=== PATIENT | male | born 1955 | race Two or more races ===

== ENCOUNTER 2019-07-25 11:06 | Emergency (ER) | payer BC ==
[~2019-07-25] VITALS: Ht 165.1 cm; Wt 86.2 kg
[2019-07-25] MEDS ORDERED: IV NORMAL SALINE 1000ML BAG 1,000 ML IV SCH (11:23)
--- NOTE | 2019-07-25 11:35 | PHYS DOC ---
Past Medical History Past Medical History: CAD, Hypertension Past Surgical History: Coronary Bypass Surgery Smoking: Cigarettes Adult General Chief Complaint Chief Complaint: COUGH HPI HPI Patient is a 64-year-old male who presents to the emergency department for evaluation. He states the past 2 days he has had a cough, productive of small a pancho of white sputum, with some increasing shortness of breath. Denies any pain, other than a little bit of a headache related to the cough. He denies any orthopnea but admits to some shortness of breath. He has not had any significant pedal edema. He does have a history of coronary artery disease, having undergone a bypass surgery in the past. He is a smoker. There are no alleviating or exacerbating factors to his symptoms except that exertion seems to worsen his shortness of breath. On arrival he is noted to be hypertensive and tachycardic. Review of Systems Review of Systems Constitutional: Denies fever or chills [] Eyes: Denies change in visual acuity, redness, or eye pain [] HENT: Denies nasal congestion or sore throat [] Respiratory: No additional information not addressed in HPI [] Cardiovascular: The patient denies any chest pain, palpitations, or orthopnea [] GI: Denies abdominal pain, nausea, vomiting, bloody stools or diarrhea [] : Denies dysuria or hematuria [] Musculoskeletal: Denies back pain or joint pain [] Integument: Denies rash or skin lesions [] Neurologic: Denies headache, focal weakness or sensory changes [] Endocrine: Denies polyuria or polydipsia [] All other systems were reviewed and found to be within normal limits, except as documented in this note. Current Medications Current Medications Current Medications Medications (Trade) Dose Ordered Sig/Taylor Start Time Stop Time Status Last Admin Dose Admin Albuterol/ Ipratropium (Duoneb) 3 ml 1X ONCE 07/25/19 12:00 07/25/19 12:01 DC 07/25/19 11:39 3 ML Clonidine HCl (Catapres) 0.1 mg 1X ONCE 07/25/19 12:15 07/25/19 12:16 DC 07/25/19 12:23 0.1 MG Methylprednisolone Sodium Succinate (SOLU-Medrol 125MG VIAL) 125 mg 1X ONCE 07/25/19 12:00 07/25/19 12:01 DC 07/25/19 11:50 125 MG Sodium Chloride 1,000 ml @ 100 mls/hr Q10H 07/25/19 11:23 07/25/19 21:22 07/25/19 11:50 100 MLS/HR Allergies Allergies Allergies Coded Allergies Type Severity Reaction Last Updated Verified No Known Drug Allergies 07/25/19 No Physical Exam Physical Exam PHYSICAL EXAM: CONSTITUTIONAL: Well developed, well nourished HEAD: normocephalic, atraumatic EENT: PERRL, EOMI. Conjunctivae normal color, sclerae non-icteric; moist mucous membranes. NECK: Supple, non-tender; no meningismus. LUNGS: There are scattered coarse wheezes and expiratory rhonchi in all lung tesfaye, without any rales. There is mildly increased work of breathing.. HEART: Regular tachycardia, no murmur CHEST: No deformity; non-tender ABDOMEN: The abdomen is soft, and non-tender, no masses or bruits. EXTREM: Normal ROM; no deformity, no calf tenderness. Normal pulses palpable in all extremities. There is trace bilateral pedal edema. SKIN: No rash; no diaphoresis NEURO: Alert; normal speech and cognition; CN's grossly intact; strength grossly intact without focal deficit. BACK: No CVA TTP. Current Patient Data Vital Signs Vital Signs Date Time Temp Pulse Resp B/P (MAP) Pulse Ox O2 Delivery O2 Flow Rate FiO2 07/25/19 12:26 96 20 164/93 (116) 97 Room Air 07/25/19 11:10 98.5 98.5 Lab Values Laboratory Tests Test 07/25/19 11:37 07/25/19 12:29 White Blood Count 4.7 x10^3/uL (4.0-11.0) Red Blood Count 4.80 x10^6/uL (4.30-5.70) Hemoglobin 15.2 g/dL (13.0-17.5) Hematocrit 44.2 % (39.0-53.0) Mean Corpuscular Volume 92 fL (79-100) Mean Corpuscular Hemoglobin 32 pg (25-35) Mean Corpuscular Hemoglobin Concent 35 g/dL (31-37) Red Cell Distribution Width 14.8 % (11.5-14.5) H Platelet Count 173 x10^3/uL (140-400) Neutrophils (%) (Auto) 59 % (31-73) Lymphocytes (%) (Auto) 23 % (24-48) L Monocytes (%) (Auto) 14 % (0-9) H Eosinophils (%) (Auto) 4 % (0-3) H Basophils (%) (Auto) 1 % (0-3) Neutrophils # (Auto) 2.7 x10^3/uL (1.8-7.7) Lymphocytes # (Auto) 1.1 x10^3/uL (1.0-4.8) Monocytes # (Auto) 0.7 x10^3/uL (0.0-1.1) Eosinophils # (Auto) 0.2 x10^3/uL (0.0-0.7) Basophils # (Auto) 0.0 x10^3/uL (0.0-0.2) Sodium Level 140 mmol/L (136-145) Potassium Level 3.8 mmol/L (3.5-5.1) Chloride Level 105 mmol/L (98-107) Carbon Dioxide Level 27 mmol/L (21-32) Anion Gap 8 (6-14) Blood Urea Nitrogen 16 mg/dL (8-26) Creatinine 1.1 mg/dL (0.7-1.3) Estimated GFR (Cockcroft-Gault) 67.4 BUN/Creatinine Ratio 15 (6-20) Glucose Level 120 mg/dL (70-99) H Lactic Acid Level 1.0 mmol/L (0.4-2.0) Calcium Level 8.9 mg/dL (8.5-10.1) Total Bilirubin 0.3 mg/dL (0.2-1.0) Aspartate Amino Transferase (AST) 19 U/L (15-37) Alanine Aminotransferase (ALT) 22 U/L (16-63) Alkaline Phosphatase 57 U/L (46-116) Troponin I Quantitative < 0.017 ng/mL (0.000-0.055) SQ-Rge-U-Type Natriuretic Peptide 901 pg/mL (0-124) H Total Protein 7.3 g/dL (6.4-8.2) Albumin 3.6 g/dL (3.4-5.0) Albumin/Globulin Ratio 1.0 (1.0-1.7) Influenza Type A Antigen Negative (NEGATIVE) Influenza Type B Antigen Negative (NEGATIVE) Laboratory Tests 07/25/19 11:37 Laboratory Tests 07/25/19 11:37 EKG EKG []Normal sinus rhythm at a rate of 101 beats for minute, normal axis, normal intervals, left ventricular hypertrophy with repolarization abnormality without acute ischemic ST/T changes, nonspecific changes are present. Radiology/Procedures Radiology/Procedures PROCEDURE: CHEST PA & LATERAL CHEST PA LATERAL History: Shortness of breath Comparison: None. Findings: 2 views of the chest are submitted. There has been median sternotomy. There is atrial appendage clip. Pericardial cardiac silhouette is enlarged. There is no pneumothorax or dependent pleural fluid. There is some fullness of the right hilar region/mild right perihilar opacity. Impression: 1. There is fullness of the right hilar region/perihilar opacity which may be component of infiltrate although short-term follow-up after treatment advised. There are no previous exams to evaluate for change.[] Course & Med Decision Making Course & Med Decision Making Pertinent Labs and Imaging studies reviewed. (See chart for details) [] 1:45 PM: The patient's condition remained stable. He is feeling significantly better at this time after breathing treatments and his breath sounds have significantly improved. I discussed test results in detail, the need for close follow-up, and return precautions. Patient's blood pressure remains elevated will although it has improved after treatment, to the 180s systolic. He states his blood pressure is normally well-controlled and I discussed importance of close outpatient follow-up and further close monitoring of his blood pressure. He reports compliance with his blood pressure medications. Dragon Disclaimer Dragon Disclaimer This electronic medical record was generated, in whole or in part, using a voice recognition dictation system. Departure Departure Impression: Primary Impression: Wheezing Additional Impressions: Pneumonia Hypertension Disposition: 01 HOME, SELF-CARE Condition: STABLE Referrals: UNKNOWN PCP NAME (PCP) BALDEMAR SETH MD Patient Instructions: Pneumonia, Adult Additional Instructions: There was an abnormality seen on your chest x-ray today, which will require further outpatient evaluation and repeat x-ray after treatment with antibiotics. Please contact pulmonary physician as instructed to arrange follow-up in the next 1-2 weeks. Please call tomorrow to schedule an appointment. Scripts Albuterol Sulfate (PROAIR HFA INHALER) 8.5 Gm Hfa.aer.ad 1 PUFF INH PRN Q6HRS PRN for SHORTNESS OF BREATH, #1 INHALER 0 Refills Prov: GONZÁLEZ MACARIO MD 07/25/19 Prednisone (PREDNISONE) 20 Mg Tablet 40 MG PO DAILY for 5 Days, #10 TAB Prov: GONZÁLEZ MACARIO MD 07/25/19 Azithromycin (AZITHROMYCIN TABLET) 250 Mg Tablet 1 PKG PO UD, #6 TAB Prov: GONZÁLEZ MACARIO MD 07/25/19 Problem Qualifiers GONZÁLEZ MACARIO MD Jul 25, 2019 11:35
[2019-07-25 11:57] LABS: BASO % 1 % (0-3); EOS # 0.2 x10^3/uL (0.0-0.7); EOS % 4 % (0-3); HEMATOCRIT 44.2 % (39.0-53.0); HEMOGLOBIN 15.2 g/dL (13.0-17.5); LYMPH # 1.1 x10^3/uL (1.0-4.8); LYMPH % 23 % (24-48); MEAN CORPUSCULAR HEMOGLOBIN 32 pg (25-35); MEAN CORPUSCULAR HGB CONC 35 g/dL (31-37); MEAN CORPUSCULAR VOLUME 92 fL (79-100); MONO # 0.7 x10^3/uL (0.0-1.1); MONO % 14 % (0-9); NEUT # 2.7 x10^3/uL (1.8-7.7); NEUT % 59 % (31-73); PLATELET COUNT 173 x10^3/uL (140-400); RED CELL DISTRIBUTION WIDTH 14.8 % (11.5-14.5); WHITE BLOOD COUNT 4.7 x10^3/uL (4.0-11.0)
[2019-07-25] MEDS ORDERED: methylPREDNISolone SOD SUCC PF 125 MG/2 ML VIAL. IV ONE (12:00)
[2019-07-25] MEDS ORDERED: IPRATRPIUM/ALBUTEROL 0.5/2.5MG 3 ML NEBU. NEB ONE (12:00)
[2019-07-25 12:01] LABS: CALCIUM 8.9 mg/dL (8.5-10.1); CREATININE 1.1 mg/dL (0.7-1.3); GFR 67.4; POTASSIUM 3.8 mmol/L (3.5-5.1)
[2019-07-25 12:07] LABS: ALBUMIN 3.6 g/dL (3.4-5.0); TOTAL BILIRUBIN 0.3 mg/dL (0.2-1.0); TOTAL PROTEIN 7.3 g/dL (6.4-8.2)
--- NOTE | 2019-07-25 12:07 | RAD ---
CHEST PA LATERAL History: Shortness of breath Comparison: None. Findings: 2 views of the chest are submitted. There has been median sternotomy. There is atrial appendage clip. Pericardial cardiac silhouette is enlarged. There is no pneumothorax or dependent pleural fluid. There is some fullness of the right hilar region/mild right perihilar opacity. Impression: 1. There is fullness of the right hilar region/perihilar opacity which may be component of infiltrate although short-term follow-up after treatment advised. There are no previous exams to evaluate for change. Electronically signed by: Jeff Driver MD (07/25/2019 12:04 PM) [id number]
[2019-07-25] MEDS ORDERED: cloNIDine HCL 0.1 MG TABLET PO ONE (12:15)
[2019-07-25 13:10] VITALS: BP 188/86
[2019-07-25 13:17] LABS: INFLUENZA A PATIENT NEGATIVE (NEGATIVE); INFLUENZA B PATIENT NEGATIVE (NEGATIVE)
[2019-07-25] MEDS ORDERED: PRED20TA PO (13:48)
[2019-07-25] MEDS ORDERED: AZIT250T6 PO (13:48)
[2019-07-25] MEDS ORDERED: ALBU2.5V8 INH (13:48)
--- NOTE | 2019-07-25 14:16 | EKG ---
[facility] [address] [place] [id number] Test Date: 2019-07-25 Test Time: 11:28:21 Pat Name: BERE VINES Department: Room: Gender: M Equity Manager: [place] : [id number] Requested By: GONZÁLEZ MACARIO Order Number: [id number] Reading MD: Jitendra Gibson MD Measurements Intervals [place] Rate: 100 P: 64 [place]: 154 QRS: 16 QRSD: 90 T: 119 QT: 360 QTc: 467 Interpretive Statements SINUS TACHYCARDIA LVH NON-SPECIFIC ST/T CHANGES Electronically Signed On 07-25-2019 15:13:55 [employer] by Jitendra Gibson MD
== END 2019-07-25 14:21 | disposition home or self-care (01) ==
LOC: ER 11:06
DX: J18.9 Pneumonia, unspecified organism (principal); I10 Essential (primary) hypertension; I25.810 Atherosclerosis of coronary artery bypass graft(s) without angina pectoris; F17.210 Nicotine dependence, cigarettes, uncomplicated
CPT/HCPCS: 36415; 71046; 80053; 83605; 83880; 84484; 85025; 87040; 87804; 93005; 94640; 96374; 99285; J2930; J7030; J7620

== ENCOUNTER 2021-06-24 10:24 | Emergency (ER) | payer BC ==
[~2021-06-24] VITALS: Ht 165.1 cm; Wt 90.0 kg
[~2021-06-24 10:24] MED LIST: ALBU2.5V8 INH; ASPI-886 PO; ATOR20TA58 PO; AZIT250T6 PO; CARV6.2511 PO; FURO-68 PO; LISI10TA16 PO; PRED20TA PO; SPIR25TA PO
--- NOTE | 2021-06-24 11:01 | PHYS DOC ---
Past Medical History Past Medical History: CAD, Hypertension Past Surgical History: Coronary Bypass Surgery Additional Past Surgical Histo: LEFT LEG STENT Smoking Status: Current Every Day Smoker Alcohol Use: Occasionally Drug Use: None General Adult EDM: Chief Complaint: COUGH HPI: HPI: Patient is a 66-year-old male presents to the emergency department complaining of a nonproductive cough for the past 2 weeks. Patient reports a past medical history of four-vessel coronary bypass 4 years ago at . Patient also complains of increased ankle swelling bilaterally over the past week. Patient denies chest pain, denies shortness of breath, denies abdominal pains, nausea, vomiting, diarrhea. Patient denies increased thirst or increased urination. Denies recent fever or chills, denies loss of taste or loss of smell, denies generalized body aches. Reports receiving the COVID-19 vaccination series. Patient states he does become more short of breath whenever he walks or exerts himself. Patient reports he has to sit for quite a while to catch his breath. Denies other physical complaints or physical concerns. Review of Systems: Review of Systems: 14 body systems of review of systems have been reviewed. See HPI for pertinent positives and negative responses, otherwise all other systems are negative, nonpertinent or noncontributory. Constitutional: Negative except as outlined in HPI above. Skin: Negative except as outlined in HPI above. Eyes: Negative except as outlined in HPI above. HENT: Negative except as outlined in HPI above. Respiratory: Negative except as outlined in HPI above. Cardiovascular: Negative except as outlined in HPI above. GI: Negative except as outlined in HPI above. : Negative except as outlined in HPI above. Musculoskeletal: Negative except as outlined in HPI above. Integument: Negative except as outlined in HPI above. Neurologic: Negative except as outlined in HPI above. Endocrine: Negative except as outlined in HPI above. Lymphatic: Negative except as outlined in HPI above. Psychiatric: Negative except as outlined in HPI above. Heart Score: C/O Chest Pain: No Risk Factors: Risk Factors: DM, Current or recent (<one month) smoker, HTN, HLP, family history of CAD, obesity. Risk Scores: Score 0 - 3: 2.5% MACE over next 6 weeks - Discharge Home Score 4 - 6: 20.3% MACE over next 6 weeks - Admit for Clinical Observation Score 7 - 10: 72.7% MACE over next 6 weeks - Early Invasive Strategies Allergies: Allergies: Allergies Coded Allergies Type Severity Reaction Last Updated Verified No Known Drug Allergies 07/25/19 No Physical Exam: PE: Constitutional: Well developed, well nourished, no acute distress, non-toxic appearance. 66-year-old male in mild respiratory distress. HENT: Normocephalic, atraumatic. Oropharynx moist, pink, no deep tissue infectious process appreciated. Eyes: Conjunctiva normal, no discharge. Neck: Normal range of motion, no stridor. No nuchal rigidity, no meningismus signs. Cardiovascular: No cyanosis appreciated, distal cap refill less than 2 seconds. Heart sounds S1-S2 Lungs & Thorax: Audible inspiratory/expiratory coarse lung sounds, coarse lung sounds all lung tesfaye for auscultation. Moderate work of breathing at rest. Abdomen: Nontender, no abnormalities noted. Skin: Warm, dry, no erythema, no rash. Back: No tenderness, no deformities. Extremities: No tenderness, no cyanosis, no clubbing, ROM intact, bilateral 2+ pitting ankle and foot edema. 2+ dorsalis pedis pulses bilaterally. Cap r efills less than 2 seconds. Neurologic: Alert and oriented X 3, normal motor function, normal sensory function, no focal deficits noted. Psychologic: Affect normal, judgement normal, mood normal. Current Patient Data: Labs: Laboratory Tests Test 06/24/21 10:50 06/24/21 10:54 White Blood Count 6.2 x10^3/uL Red Blood Count 4.08 x10^6/uL Hemoglobin 13.3 g/dL Hematocrit 39.0 % Mean Corpuscular Volume 96 fL Mean Corpuscular Hemoglobin 33 pg Mean Corpuscular Hemoglobin Concent 34 g/dL Red Cell Distribution Width 13.2 % Platelet Count 240 x10^3/uL Neutrophils (%) (Auto) 72 % Lymphocytes (%) (Auto) 15 % Monocytes (%) (Auto) 9 % Eosinophils (%) (Auto) 4 % Basophils (%) (Auto) 1 % Neutrophils # (Auto) 4.5 x10^3/uL Lymphocytes # (Auto) 0.9 x10^3/uL Monocytes # (Auto) 0.5 x10^3/uL Eosinophils # (Auto) 0.2 x10^3/uL Basophils # (Auto) 0.1 x10^3/uL Sodium Level 141 mmol/L Potassium Level 4.0 mmol/L Chloride Level 105 mmol/L Carbon Dioxide Level 27 mmol/L Anion Gap 9 Blood Urea Nitrogen 16 mg/dL Creatinine 1.1 mg/dL Estimated GFR (Cockcroft-Gault) 67.0 BUN/Creatinine Ratio 15 Glucose Level 124 mg/dL Calcium Level 8.2 mg/dL Total Bilirubin 0.3 mg/dL Aspartate Amino Transf (AST/SGOT) 20 U/L Alanine Aminotransferase (ALT/SGPT) 37 U/L Alkaline Phosphatase 60 U/L Creatine Kinase 194 U/L Creatine Kinase MB (Mass) 2.4 ng/mL Creatine Kinase MB Relative Index 1.2 % Troponin I Quantitative 0.020 ng/mL ME-Cbf-V-Type Natriuretic Peptide 4162 pg/mL Total Protein 6.6 g/dL Albumin 3.3 g/dL Albumin/Globulin Ratio 1.0 SARS-CoV-2 Antigen (Rapid) Negative EKG: EKG: EKG performed at 1047 by ED nursing staff shows a normal sinus rhythm with a heart rate of 97 bpm, SD interval 0.172, QTc interval 0.497, no acute STEMI, no ACS, no acute ischemia appreciated, EKG interpreted by ED attending physician Dr. Dover. Radiology/Procedures: Radiology/Procedures: PATIENT: BERE VINES ACCOUNT: [id number] : 1955 LOCATION: ER AGE: 66 SEX: M EXAM STATUS: REG ER ORD. PHYSICIAN: DANA HOLMAN APRN REASON: Cough, audible adventitious lung sounds,STARTING IV PROCEDURE: CHEST AP ONLY Single view of the chest. 06/24/2021 10:57 AM Indication: Reason: Cough, audible adventitious lung sounds, Comparison: Chest radiograph January 22, 2021 Findings: The heart is enlarged. The appearance is similar to comparison study. Prior median sternotomy noted. Atrial appendage closure device noted. No pneumothorax pleural effusion is seen. Central vascular congestion and interstitial thickening is present. The appearance is similar to comparison study. IMPRESSION: Cardiomegaly, central vascular congestion, and interstitial thickening. Constellation of findings favors mild pulmonary edema in the setting of CHF. An atypical or viral infectious process could be considered in the appropriate setting. Electronically signed by: Colton Elmore MD (06/24/2021 11:13 AM) [id number] Course & Med Decision Making: Course & Med Decision Making Pertinent Labs and Imaging studies reviewed. (See chart for details) 66-year-old male, vital signs reviewed, presents emergency department concerning cough for the past 2 weeks with increased work of breathing on exertion. patient's physical examination suspicious for acute COPD exacerbation. Will order chest x-ray, EKG, CBC, CMP, proBNP, troponin I, cardiac isoenzymes, urinalysis assay. Patient has been vaccinated for the COVID-19 virus, will test today for COVID-19 pending decision to admission to hospital versus discharged home. An extensive chart review reveals patient had four-vessel coronary bypass at , it has been noted patient is noncompliant with medications in the past. The patient did denies cigarette smoking today, states he had never been a smoker, however past physical examination is noted patient is a cigarette smoker. Patient does report not taking taking his medications as prescribed for the past week. Patient reports he is trying to decide whether or not he should take his medications. Patient's blood pressure slightly elevated, 179/95 of left upper extremity. The patient is not hypoxic in appearance, his room air oxygen saturation was 90% on room air after ambulating to the room however did rise to 97% while at rest during physical examination. Considering admission to the hospital for patient's x-rays and labs along with physical examination consistent with acute on chronic CHF exacerbation, consulted with inpatient management physician Dr. Estrada who did not refuse to accept patient admission and is happy to take patient under admission however suggested patient be treated in the emergency department with a diuretic and reevaluated after period of time then reconsider admission to the hospital. Patient was given 40 mg Lasix IV related to x-ray concerning for mild pulmonary congestion most likely CHF exacerbation, lab work unremarkable other than elevated BNP at 4162 which is significantly better than his discharge BNP level at 6033 at discharge in December 2020. After period of time will reevaluate patient. After period of time, patient is in no respiratory distress, no adventitious lung sounds appreciated audibly or per auscultation. Discussed with patient compliance with medications, patient reports he missed his previous doctor's appointment and was unable to get his prescriptions filled. Discussed with patient will fill prescriptions at this ED visit with strict follow-up with primary care physician for ongoing medication management. Discussed return to ER precautions and concerns. Patient is hemodynamically stable, in no respiratory distress, is not hypoxic, is not toxic in appearance, gave verbal un derstanding of and is amenable to ED discharge planning. Discussed with the patient all findings and diagnostic testing as well as the need to follow-up with their primary care provider for further evaluation and treatment or return to the ED if any new or worsening symptoms. Strict return precautions were also discussed at length, the patient voiced understanding and agreement with the discharge planning. The patient was nontoxic in appearance, in no apparent distress, and hemodynamically stable at the time of disposition. Dragon Disclaimer: Intergloss Disclaimer: This electronic medical record was generated, in whole or in part, using a voice recognition dictation system. Departure Departure Impression: Primary Impression: Acute on chronic diastolic CHF (congestive heart failure) Additional Impression: Encounter for medication refill Disposition: 01 HOME / SELF CARE / HOMELESS Condition: GOOD Referrals: GLENNY PRATER (PCP) Patient Instructions: Heart Failure Additional Instructions: You are seen today in the emergency department for a cough for the past 2 weeks. Your physical examination and emergency department work-up showed some exacerbation of your chronic congestive heart failure problems. You were given 40 mg of Lasix in the emergency department today 3 your IV which seemed to help you tremendously. You are no longer short of breath, no longer have a cough, and your lung sounds are very clear at this time. You had indicated you missed your last doctor's appointment to get your prescriptions refilled. I am refi lling your prescriptions today for 1 month worth of medication, please take this time to reestablish your care with your primary care physician for ongoing medication management. Please return to the emergency department for worsening symptoms or other concerns. Thank you for visiting our Emergency Department. It was a pleasure taking care of you today in the emergency department and we appreciate you trusting us with your care. If any additional problems come up don't hesitate to return to visit us. Please follow up with your primary care provider so they can plan additional care if needed and know about the problem that you had. If symptoms worsen come back to the Emergency Department. Any concerning symptoms that start such as chest pain, shortness of air, weakness or numbness on one side of the body, running high fevers or any other concerning symptoms return to the ER. EMERGENCY DEPARTMENT GENERAL DISCHARGE INSTRUCTIONS Thank you for coming to [facility] Emergency Department (ED) christine gomez and trusting us with you care. We trust that you had a positive experience in our Emergency Department. If you wish to speak to the department management, you may call the Director at [phone]. YOUR FOLLOW UP INSTRUCTIONS ARE FOLLOWS: 1. Do you have a private Doctor? If you do not have a private doctor, please ask for a resource list of physicians or clinics that may be able to assist you with follow up care. 2. The Emergency Physicain has interpreted your x-rays. The X-Ray specialist will also review them. If there is a change in the findings, you will be notified in 48 hours when at all possible. 3. A lab test or culture has been done, your results will be reviewed and you will be notified if you need a change in treatment. ADDITIONAL INSTRUCTIONS AND INFORMATION: 1. Your care today has been supervised by a physician who is specially trained in emergency care. Many problems require more than one evaluation for a complete diagnosis and treatment. We recommend that you schedule your follow up appointment as recommended to ensure complete treatment of you illness or injury. If you are unable to obtain follow up care and continue to have a problem, or if your condition worsens, we recommend that you return to the ED. 2. We are not able to safely determine your condition over the phone nor are we able to give sound medical advice over the phone. For these safety reasons, if you call for medical advice we will ask you to come to the ED for further evaluation. 3. If you have any questions regarding these discharge instructions please call the ED at [phone]. SAFETY INFORMATION: In the interest of safety, wellness, and injury prevention; we encourage you to wear your sealbelt, if you smoke; quite smoking, and we encourage family to use a protective helmet for bicycling and other sporting events that present an increased risk for head injury. IF YOUR SYMPTOMS WORSEN OR NEW SYMPTOMS DEVELOP, OR YOU HAVE CONCERNS ABOUT YOUR CONDITION; OR IF YOUR CONDITION WORSENS WHILE YOU ARE WAITING FOR YOUR FOLLOW UP APPOINTMENT; EITHER CONTACT YOUR PRIMARY CARE DOCTOR, THE PHYSICIAN WHOSE NAME AND NUMBER YOU WERE GIVEN, OR RETURN TO THE ED IMMEDIATELY. Scripts Metoprolol Succinate (METOPROLOL SUCCINATE ( XL )) 25 Mg Tab.er.24h 1 TAB PO DAILY, #30 TAB 0 Refills Prov: DANA HOLMAN APRN 06/24/21 Clopidogrel Bisulfate (CLOPIDOGREL) 75 Mg Tablet 1 TAB PO DAILY, #30 TAB 0 Refills Prov: DANA HOLMAN APRN 06/24/21 Atorvastatin Calcium (ATORVASTATIN CALCIUM) 20 Mg Tablet 1 TAB PO DAILY, #30 TAB 0 Refills Prov: DANA HOLMAN APRN 06/24/21 Rosuvastatin Calcium (CRESTOR) 40 Mg Tablet 1 TAB PO DAILY, #30 TAB 0 Refills Prov: DANA HOLMAN APRN 06/24/21 Carvedilol (CARVEDILOL ) 12.5 Mg Tablet 12.5 MG PO BIDWMEALS for CARDIAC for 30 Days, #60 TAB 0 Refills Prov: DANA HOLMAN APRN 06/24/21 Furosemide (LASIX) 20 Mg Tablet 20 MG PO BID for chf for 30 Days, #60 TAB 0 Refills Prov: DANA HOLMAN APRN 06/24/21 Lisinopril (LISINOPRIL) 20 Mg Tablet 1 TAB PO DAILY for htn, #30 TAB 0 Refills Prov: DANA HOLMAN APRN 06/24/21 Midodrine Hcl (MIDODRINE HCL) 5 Mg Tablet 5 MG PO DAILY for orthostatic hypotention, #30 TAB 0 Refills Prov: DANA HOLMAN APRN 06/24/21 DANA HOLMAN APRN Jun 24, 2021 11:01
[2021-06-24 11:02] VITALS: BP 174/95
[2021-06-24 11:08] LABS: BASO # 0.1 x10^3/uL (0.0-0.2); BASO % 1 % (0-3); EOS # 0.2 x10^3/uL (0.0-0.7); EOS % 4 % (0-3); HEMOGLOBIN 13.3 g/dL (13.0-17.5); LYMPH # 0.9 x10^3/uL (1.0-4.8); LYMPH % 15 % (24-48); MEAN CORPUSCULAR HEMOGLOBIN 33 pg (25-35); MEAN CORPUSCULAR HGB CONC 34 g/dL (31-37); MEAN CORPUSCULAR VOLUME 96 fL (79-100); MONO # 0.5 x10^3/uL (0.0-1.1); MONO % 9 % (0-9); NEUT # 4.5 x10^3/uL (1.8-7.7); NEUT % 72 % (31-73); PLATELET COUNT 240 x10^3/uL (140-400); RED BLOOD COUNT 4.08 x10^6/uL (4.30-5.70); RED CELL DISTRIBUTION WIDTH 13.2 % (11.5-14.5); WHITE BLOOD COUNT 6.2 x10^3/uL (4.0-11.0)
--- NOTE | 2021-06-24 11:16 | RAD ---
Single view of the chest. 06/24/2021 10:57 AM Indication: Reason: Cough, audible adventitious lung sounds, Comparison: Chest radiograph January 22, 2021 Findings: The heart is enlarged. The appearance is similar to comparison study. Prior median sternoto my noted. Atrial appendage closure device noted. No pneumothorax pleural effusion is seen. Central va scular congestion and interstitial thickening is present. The appearance is similar to comparison kristin dy. IMPRESSION: Cardiomegaly, central vascular congestion, and interstitial thickening. Constellation of findings favors mild pulmonary edema in the setting of CHF. An atypical or viral infectious process c ould be considered in the appropriate setting. Electronically signed by: Colton Elmore MD (06/24/2021 11:13 AM) [id number]
[2021-06-24 11:18] LABS: CALCIUM 8.2 mg/dL (8.5-10.1); CREATININE 1.1 mg/dL (0.7-1.3)
[2021-06-24 11:24] LABS: ALBUMIN 3.3 g/dL (3.4-5.0); TOTAL BILIRUBIN 0.3 mg/dL (0.2-1.0); TOTAL PROTEIN 6.6 g/dL (6.4-8.2)
--- NOTE | 2021-06-24 12:06 | EKG ---
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
[2021-06-24] MEDS ORDERED: FUROSEMIDE 40 MG/4 ML VIAL. IVP ONE (12:15)
[2021-06-24] MEDS ORDERED: FURO-69 PO (14:04)
[2021-06-24] MEDS ORDERED: CLOP75TA PO (14:04)
[2021-06-24] MEDS ORDERED: CRESTOR40 MG PO (14:04)
[2021-06-24] MEDS ORDERED: CARV12.511 PO (14:04)
[2021-06-24] MEDS ORDERED: METO-239 PO (14:04)
[2021-06-24] MEDS ORDERED: LISI20TA18 PO (14:04)
[2021-06-24] MEDS ORDERED: MIDO5TAB4 PO (14:04)
[2021-06-24] MEDS ORDERED: ATOR20TA58 PO (14:04)
--- NOTE | 2021-06-24 16:16 | NUR ---
IP: Attempted to contact pt concerning covid results. No answer, left a voicemail to return the call.
--- NOTE | 2021-06-25 16:42 | NUR ---
IP: Attempted to contact pt concerning covid results. No answer, left a second voicemail to return the call.
== END 2021-06-24 14:18 | disposition home or self-care (01) ==
LOC: ER 10:24
DX: I11.0 Hypertensive heart disease with heart failure (principal); Z20.822 Contact with and (suspected) exposure to COVID-19; I50.33 Acute on chronic diastolic (congestive) heart failure; Z76.0 Encounter for issue of repeat prescription; I25.10 Atherosclerotic heart disease of native coronary artery without angina pectoris; F17.200 Nicotine dependence, unspecified, uncomplicated; Z95.1 Presence of aortocoronary bypass graft; Z95.5 Presence of coronary angioplasty implant and graft
CPT/HCPCS: 36415; 71045; 80053; 82553; 83605; 83880; 84484; 85025; 87040; 87426; 93005; 96374; 99285; J1940; U0003; U0005; 96372